=== PATIENT | female | born 1980 | race Two or more races ===

== ENCOUNTER 2017-02-10 21:36 | Emergency (ER) | payer OTHER ==
[2017-02-10 21:44] VITALS: BP 144/85
[2017-02-10] MEDS ORDERED: Ketorolac INJ* 60 MG/2 ML VIAL IM ONE (23:20)
[2017-02-10] MEDS ORDERED: Ondansetron ODT TAB* 4 MG PO ONE (23:20)
[2017-02-11] MEDS ORDERED: Ondansetron ODT TAB* 4 MG PO ONE (01:09)
--- NOTE | 2017-02-11 01:09 | ED ---
Lower Extremity - HPI Summary HPI Summary: 36 female presents with complaints of left knee pain, swelling and injury while playing [employer]. Patient states she fell and her left knee went laterally. She admits to obvious deformity and swelling with pain at anterior knee cap. Denies any ankle or hip pain. Did not hit her head and no LOC. Denies any other injuries. Is able to bear weight however causes her pain. Did not hear any audible pop but states it felt that way. Patient is anxious and states she feels nauseous. Is able to straighten, unable to bend. No PMHx. Denies numbness/tingling. Patient states she did have a workup on her knees for a issue she can not recall the name of, something to do with her patella, however it was ruled out. - History of Current Complaint Chief Complaint: EDExtremityLower Stated Complaint: LEFT KNEE PAIN Time Seen by Provider: 02/10/17 22:36 Hx Obtained From: Patient Mechanism Of Injury: Fall From A Standing Position, Twisted Onset of Pain: Immediate Onset/Duration: Hours Severity Initially: Moderate Severity Currently: Severe Pain Intensity: 8 Pain Scale Used: 0-10 Numeric Timing: Constant Location: Is Discrete @ - left anterior knee Character Of Pain: Sharp, Aching, Stiffness Associated Signs And Symptoms: Positive: Swelling, Redness, Bruising, Knee Pain Aggravating Factor(s): Standing, Ambulation, Weight Bearing Alleviating Factor(s): Rest Able to Bear Weight: Yes - Allergies/Home Medications Allergies/Adverse Reactions: Allergies Allergy/AdvReac Type Severity Reaction Status Date / Time Iodine Allergy Airway Verified 02/10/17 21:46 Obstruction Shellfish Allergy Allergy Itching Verified 02/10/17 21:46 Contrast dye Allergy Airway Uncoded 02/10/17 21:46 Obstruction PMH/Surg Hx/FS Hx/Imm Hx Endocrine/Hematology History: Denies: Hx Diabetes Cardiovascular History: Denies: Hx Congestive Heart Failure, Hx Hypertension, Hx Pacemaker/ICD, Other Cardiovascular Problems/Disorders Respiratory History: Denies: Hx Asthma, Hx Chronic Obstructive Pulmonary Disease (COPD), Other Respiratory Problems/Disorders Musculoskeletal History: Denies: Hx Rheumatoid Arthritis, Hx Osteoporosis - Surgical History Surgery Procedure, Year, and Place: none - Immunization History Immunizations Up to Date: Yes Infectious Disease History: No Infectious Disease History: Denies: Traveled Outside the [place] in Last 30 Days - Family History Known Family History: Positive: None - Social History Alcohol Use: Rare Substance Use Type: Reports: None Hx Tobacco Use: No Smoking Status (MU): Never Smoked Tobacco Review of Systems Constitutional: Negative Cardiovascular: Negative Respiratory: Negative Positive: Nausea Positive: Arthralgia, Myalgia, Decreased ROM, Edema - left knee Positive: Bruising - left knee Neurological: Negative Positive: Anxious All Other Systems Reviewed And Are Negative: Yes Physical Exam Triage Information Reviewed: Yes Vital Signs On Initial Exam: Initial Vitals Temp Pulse Resp BP Pulse Ox 98.7 F 97 14 144/85 97 02/10/17 21:42 02/10/17 21:42 02/10/17 21:42 02/10/17 21:42 02/10/17 21:42 BP re-checked. patient was very anxious and in pain Vital Signs Reviewed: Yes Appearance: Positive: Well-Appearing, Well-Nourished, Pain Distress - moderate Skin: Positive: Warm, Skin Color Reflects Adequate Perfusion, Dry, Erythema @ - ecchymosis and edema of left knee, obvious deformity. tender to palpation. Head/Face: Positive: Normal Head/Face Inspection Eyes: Positive: Normal, Conjunctiva Clear ENT: Positive: Normal ENT inspection, Hearing grossly normal Neck: Positive: Supple, Nontender Respiratory/Lung Sounds: Positive: Clear to Auscultation, Breath Sounds Present. Negative: Rales, Rhonchi, Wheezes Cardiovascular: Positive: Normal, RRR, Pulses are Symmetrical in both Upper and Lower Extremities - 2+ pedal b/l. Negative: Leg Edema Left, Leg Edema Right Abdomen Description: Positive: Nontender, No Organomegaly, Soft Bowel Sounds: Positive: Present Musculoskeletal: Positive: Limited @ - left knee flexion and extension, worse with flexion. limited strength 3/5. right LE normal., Interruption @ - obvious deformity appear patella dislocated/out of place., Pain @ - on palation and movement of left knee, anterior above patella and pateller tendon, Edema Left - anterior knee above patella, patellar tendon Neurological: Positive: Normal, Sensory/Motor Intact - sensation intact, Alert, Oriented to Person Place, Time Psychiatric: Positive: Anxious AVPU Assessment: Alert Diagnostics - Vital Signs Vital Signs Temp Pulse Resp BP Pulse Ox 02/10/17 21:42 98.7 F 97 14 144/85 97 - Laboratory Lab Statement: Any lab studies that have been ordered have been reviewed, and results considered in the medical decision making process. - Radiology left knee Xray Interpretation: No Acute Changes - soft tissue swelling, no evidence for fracture Radiology Interpretation Completed By: Radiologist - CT left knee CT Interpretation: Positive (See Comments) - soft tissue swelling anterior to patella and patellar tendon. No evidence for fracture. patella sunita predisposing for patellar instability. Re-Evaluation - Re-Evaluation First Eval Re-Evaluation Time: 13:30 Change: Improved - patient has some relief after toradol and zofran Lower Extremity Course/Dx - Course Course Of Treatment: given toradol and zofran. pain relief and nausea relief. x- ray obtained due to concern for tendon rupture. CT of LE ordered. showed patella sunita however no tendon rupture. possible strain of patellar tendon due to PE findings, JOSE and imaging. Given pain management and knee immobilzer. Crutches. Refrain from bearing weight and follow up with ortho beginning of next week. Aware of worsening signs and symptoms. Ice, rest and elevate. - Diagnoses Differential Diagnosis/HQI/PQRI: Positive: Contusion, Dislocation, Fracture ( Closed), Sprain, Strain, Tendonitis, Other - tendon rupture Provider Diagnoses: Left anterior knee pain, Sprain of left patella Discharge - Discharge Plan Condition: Stable Disposition: HOME Prescriptions: HYDROcodone/ACETAMIN 5-325 MG* [[employer] 5-325 TAB*] 1 tab PO Q6H PRN #15 tab MDD 2 PRN Reason: Pain - Moderate To Severe Ondansetron TAB* [Zofran 4 MG Tab*] 4 mg PO Q6H PRN #15 tab PRN Reason: Nausea Patient Education Materials: Knee Pain (ED) Referrals: Babita Bailey MD [Primary Care Provider] - Mehrdad Aguillon MD [Medical Doctor] - Additional Instructions: Take prescribed pain medication as directed. This is a narcotic. Do not drive while taking this medication. Take nausea medication only a needed for nausea. Ice Ice Ice. Rest and elevate. Keep knee in immobilizer and use crutches. Refrain from physical activity and bearing weight on left knee. Make an appointment to follow up with orthopedics. If your pain worsens or new symptoms develop please return.
[2017-02-11] MEDS ORDERED: HYDROcodone/ACETAMIN 5-325 MG* 1 TAB PO ONE (01:15)
--- NOTE | 2017-02-11 07:00 | RAD ---
INDICATION: Left knee injury. TECHNIQUE: 2 views of the left knee were obtained. FINDINGS: There is focal soft tissue swelling anterior to the patella and patellar tendon. No joint effusion or fracture is seen. Joint spaces appear maintained. IMPRESSION: SOFT TISSUE SWELLING, NO FRACTURE IS SEEN.
--- NOTE | 2017-02-11 07:13 | RAD ---
INDICATION: Left knee trauma, evaluate for patellar tendon rupture. COMPARISON: Correlation is made with a prior x-ray study of the left knee from the same date. TECHNIQUE: Contiguous axial sections were obtained of the left knee. Images were reconstructed in the sagittal and coronal planes. FINDINGS: There is focal soft tissue swelling anterior to the patella and patellar tendon. The quadriceps and patellar tendons appear intact. There is patella shima. The bones are in normal alignment. No joint effusion or fracture is seen. Joint spaces appear maintained. There is mild osteoarthritic change in the medial compartment. IMPRESSION: 1. FOCAL SOFT TISSUE SWELLING ANTERIOR TO THE PATELLA AND PATELLAR TENDON. NO EVIDENCE FOR FRACTURE. 2. PATELLA SHIMA PREDISPOSING TO PATELLAR INSTABILITY.
== END 2017-02-11 01:40 | disposition home or self-care (01) ==
LOC: ED 21:36
DX: M25.562 Pain in left knee (principal)
CPT/HCPCS: 96372; 99282; A9270-GY; J1885

== ENCOUNTER 2017-03-02 12:22 | Day surgery (SDC) | payer OTHER ==
[2017-03-02 12:22] LABS: UR Preg Internal Control QC Line Present
[~2017-03-02 12:22] MED LIST: Buffered Lidocaine 0.9% SYRIN* 5 ML/SYR SYRINGE INTRADERM ONE; Lidocaine 4% TOPICAL* 50 ML TOP.SOLN ONE; Lidocaine 4% TOPICAL* 50 ML TOP.SOLN TOPICAL ONE; Oxymetazoline 0.05% NASAL SPR* 15 ML BTL ONE; Tetracaine 1%* 2 ML AMP ONE
[2017-03-02] MEDS ORDERED: Buffered Lidocaine 0.9% SYRIN* 5 ML/SYR SYRINGE ONE (12:24)
[2017-03-02] MEDS ORDERED: Lidocaine 2% JELLY* 6 ML JELLY TOPICAL ONE (12:33)
[2017-03-02] MEDS ORDERED: Lidocaine 4% TOPICAL* 50 ML TOP.SOLN ONE (12:33)
[2017-03-02] MEDS ORDERED: Oxymetazoline 0.05% NASAL SPR* 15 ML BTL ONE (12:33)
[2017-03-02] MEDS ORDERED: fentaNYL* 50 MCG/ML 2 ML VIAL (100 MCG VIAL) ONE (13:24)
[2017-03-02] MEDS ORDERED: Midazolam* 1 MG/ML 2 ML VIAL (2 MG) ONE (13:29)
[2017-03-02 14:20] VITALS: BP 126/91
--- NOTE | 2017-03-03 02:57 | OP ---
DATE OF OPERATION: 03/02/17 - [facility] DATE OF : 76 SURGEON: Matthieu Vázquez MD ANESTHESIOLOGIST: Jeremiah Connell MD ANESTHESIA: Local with IV sedation anesthesia. PRE-OP DIAGNOSIS: Laryngeal papilloma. POST-OP DIAGNOSIS: Laryngeal papilloma. OPERATIVE PROCEDURE: Flexible laryngoscopy with CO2 laser ablation of laryngeal papilloma. COMPLICATIONS: None. DISPOSITION: Good. SPECIMENS: None. ESTIMATED BLOOD LOSS: None. DESCRIPTION OF PROCEDURE: The patient was initially anesthetized with nebulized lidocaine and atomizer in the nose with oxymetazoline and 4% lidocaine in the Same Day and she was brought to the operating room and in a sitting position, a flexible laryngoscope was inserted to the right nostril. She had a papilloma growing on the right aryepiglottic fold into the pyriform sinus aperture. We squirted some tetracaine and 4% lidocaine through the scope to further anesthetize it, and the OmniGuide laser fiber was inserted and the papilloma was ablated without difficulty with no evidence of residual papilloma at the end of the case. The patient tolerated the procedure well, no complications, and was transferred to the recovery room in stable condition. [id number]/CPS #: [id number] MTDD
== END 2017-03-02 14:29 | disposition home or self-care (01) ==
LOC: OR 12:22
PROVIDERS: ATTEND Otolaryngology
DX: D10.7 Benign neoplasm of hypopharynx (principal); R49.0 Dysphonia
CPT/HCPCS: 81025; A9270-GY; J2250; J3010

== ENCOUNTER 2018-10-21 23:16 | Emergency (ER) | payer OTHER ==
[2018-10-21 23:23] VITALS: BP 145/95
--- NOTE | 2018-10-21 23:41 | ED ---
Bite Injury/Animal - HPI Summary HPI Summary: Patient is a 38 y/o F presenting to ED with laceration to septum. She states that her puppy bit her while they were playing. Patient notes that the puppy had chipped a tooth today and that this tooth was "extra-sharp" as a result. She states that the puppy has had shots, she claims to have gotten tetanus shot sometime in the past 3-4 years. On triage, pain is denied, nothing is noted to aggravate/alleviate Sx. Home medications and allergies are reviewed. - History of Current Complaint Chief Complaint: EDAnimalBite Stated Complaint: DOG BITE Time Seen by Provider: 10/21/18 23:29 Hx Obtained From: Patient Onset of Injury: Happened hours ago, Still Present Type of Bite: Pet Has Animal Been Immunized?: Yes Severity Currently: None Pain Intensity: 0 Pain Scale Used: 0-10 Numeric - 0/10 Character: Abrasion/Laceration Aggravating Factor(s): Nothing Alleviating Factor(s): Nothing Associated Signs And Symptoms: Positive: Negative - Allergies/Home Medications Allergies/Adverse Reactions: Allergies Allergy/AdvReac Type Severity Reaction Status Date / Time Iodine and Iodide Containing Allergy Airway Verified 10/21/18 23:31 Produc Obstruction shellfish derived Allergy Itching Verified 10/21/18 23:31 cat dander Allergy Mild Eyes Uncoded 10/21/18 23:31 Itchy/Swollen/Red/Watery Contrast dye Allergy Airway Uncoded 10/21/18 23:31 Obstruction PMH/Surg Hx/FS Hx/Imm Hx Endocrine/Hematology History: Denies: Hx Diabetes Cardiovascular History: Reports: Other Cardiovascular Problems/Disorders - pre- mature PVS's, 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, stopped spring 2015, resolved Denies: Hx Congestive Heart Failure, Hx Hypertension, Hx Pacemaker/ICD Respiratory History: Reports: Hx Asthma - uses inhalers, has had asthma for approx 5 yrs, Other Respiratory Problems/Disorders - exercise induced laryngeal obstruction Denies: Hx Chronic Obstructive Pulmonary Disease (COPD) Musculoskeletal History: Reports: Other Musculoskeletal History - Left knee injury, during roller derby approx 2 weeks ago, mid-January 2017 Denies: Hx Rheumatoid Arthritis, Hx Osteoporosis Sensory History: Reports: Hx Contacts or Glasses - wears contacts, but will wear glasses DOS Denies: Hx Cataracts, Hx Glaucoma, Hx Hearing Aid Opthamlomology History: Reports: Hx Contacts or Glasses - wears contacts, but will wear glasses DOS Denies: Hx Cataracts, Hx Glaucoma - Surgical History Surgery Procedure, Year, and Place: none Hx Anesthesia Reactions: No - pt has never had surgery/anesthesia - Immunization History Date of Tetanus Vaccine: utd Date of Influenza Vaccine: fall 2017 Infectious Disease History: No Infectious Disease History: Denies: Traveled Outside the [place] in Last 30 Days - Social History Alcohol Use: Weekly Alcohol Amount: 5 drinks a week, glass of wine/beer, but not every day Substance Use Type: Reports: None Hx Tobacco Use: No Smoking Status (MU): Never Smoked Tobacco Review of Systems Negative: Fever Positive: Other - POSITIVE - NASAL LACERATION FROM PUPPY All Other Systems Reviewed And Are Negative: Yes Physical Exam - Summary Physical Exam Summary: VITAL SIGNS: Reviewed. GENERAL: Patient is a well-developed and nourished female who is lying comfortable in the stretcher. Patient is not in any acute respiratory distress. HEAD AND FACE: No signs of trauma. No ecchymosis, hematomas or skull depressions. No sinus tenderness. EYES: PERRLA, EOMI x 2, No injected conjunctiva, no nystagmus. EARS: Hearing grossly intact. Ear canals and tympanic membranes are within normal limits. MOUTH: Oropharynx within normal limits. NECK: Supple, trachea is midline, no adenopathy, no JVD, no carotid bruit, no c- spine tenderness, neck with full ROM. CHEST: Symmetric, no tenderness at palpation LUNGS: Clear to auscultation bilaterally. No wheezing or crackles. CVS: Regular rate and rhythm, S1 and S2 present, no murmurs or gallops appreciated. ABDOMEN: Soft, non-tender. No signs of distention. No rebound no guarding, and no masses palpated. Bowel sounds are normal. EXTREMITIES: FROM in all major joints, no edema, no cyanosis or clubbing. NEURO: Alert and oriented x 3. No acute neurological deficits. Speech is normal and follows commands. SKIN: Dry and warm; 1/2 cm laceration over the left nostril, medially Triage Information Reviewed: Yes Vital Signs On Initial Exam: Initial Vitals Temp Pulse Resp BP Pulse Ox 98.3 F 68 16 145/95 98 10/21/18 23:19 10/21/18 23:19 10/21/18 23:19 10/21/18 23:19 10/21/18 23:19 Vital Signs Reviewed: Yes Procedures - Procedure Summary Procedure Summary: Multiple injections of lido 2% without effect, patient continues to have sensation. Therefore, she chose to use dermabond instead. - Laceration/Wound Repair 1 Location: Other - nose Anesthesia: 2.0%, Lido Closure: Skin Adhesive - dermabond Diagnostics - Vital Signs Vital Signs Temp Pulse Resp BP Pulse Ox 10/21/18 23:19 98.3 F 68 16 145/95 98 - Laboratory Lab Statement: Any lab studies that have been ordered have been reviewed, and results considered in the medical decision making process. Bite Injury Course/Dx - Course Course Of Treatment: Patient is a 38 y/o F presenting to ED with laceration to septum. She states that her puppy bit her while they were playing. Patient notes that the puppy had chipped a tooth today and that this tooth was "extra- sharp" as a result. She states that the puppy has had shots, she claims to have gotten tetanus shot sometime in the past 3-4 years. On exam, 1/2 cm laceration over the left nostril, medially. Multiple injections of lido 2% without effect, patient continues to have sensation. Therefore, she chose to use dermabond instead. She was discharged to home. - Diagnoses Provider Diagnosis: Nasal laceration Discharge - Sign-Out/Discharge Documenting (check all that apply): Patient Departure - discharge - Discharge Plan Condition: Stable Disposition: HOME Prescriptions: Amoxicillin/Clavulanate TAB* [Augmentin TAB 875*] 875 mg PO BID #14 tab Patient Education Materials: Laceration (ED) Referrals: Babita Bailey MD [Primary Care Provider] - 2 Days Additional Instructions: RETURN TO THE EMERGENCY DEPARTMENT FOR CHANGING OR WORSENING SYMPTOMS. FOLLOW UP WITH PRIMARY CARE PHYSICIAN IN 1-2 DAYS. - Attestation Statements Document Initiated by Scribe: Yes Documenting Scribe: NEYMAR BHAGAT Provider For Whom Scribe is Documenting (Include Credential): MECCA OSORIO MD Scribe Attestation: NEYMAR Bradley , scribed for MECCA OSORIO MD on 10/22/18 at 0021. Status of Scribe Document: Ready
[2018-10-21] MEDS ORDERED: Lidocaine 2% PF * 5 ML VIAL ONE (23:46)
[2018-10-22] MEDS ORDERED: Amoxicillin/Clavulanate TAB* 875 MG PO ONE (00:07)
== END 2018-10-22 00:18 | disposition home or self-care (01) ==
LOC: ED 23:16
DX: S01.21XA Laceration without foreign body of nose, initial encounter (principal); W54.0XXA Bitten by dog, initial encounter; Y92.9 Unspecified place or not applicable
CPT/HCPCS: 99282; A9270-GY